=== PATIENT | male | born 1950 | race Caucasian/White ===

== ENCOUNTER → 2024-11-14 | Outpatient (CLI) | payer MEDICARE, BC, SELFPAY ==
[2024-11-14 15:55] LABS: Collection Type, Urine Clean Catch
[2024-11-14 17:40] LABS: Bacteria,Urine Rare; Bilirubin,Urine Negative (Negative); Blood,Urine Negative (Negative); Clarity,Urine Clear (Clear/Hazy); Color,Urine Yellow (Lt Yel-Yel); Glucose, Urine Negative (Negative); Ketones,Urine Negative (Negative); Leukocyte Esterase,Urine Negative (Negative); Nitrite,Urine Negative (Negative); Protein,Urine 1+ (Neg - Trace); RBC,Urine 2 /hpf (0-3); Squamous Epithelial Cell,Urine < 1 /hpf (0-5); Urobilinogen,Urine Negative mg/dL (0.0-1.0); WBC,Urine 5 /hpf (0-5)
== END | disposition home or self-care (01) ==
LOC: SLDO 15:17
PROVIDERS: PCP Family Medicine; Referring Provider Family Medicine; Visit Provider Family Medicine
DX: N30.00 Acute cystitis without hematuria (principal)
CPT/HCPCS: 81001; 87086

== ENCOUNTER → 2024-11-16 | Outpatient (CLI) | payer MEDICARE, BC, SELFPAY ==
[2024-11-16 10:59] LABS: Basophils # (Auto) 0.1 Thou/mm3 (0.0-0.2); Basophils % (Auto) 1 % (0-2.5); Eosinophils # (Auto) 0.4 Thou/mm3 (0.0-0.5); Eosinophils % (Auto) 4 % (0-10); Hematocrit 45.4 % (41.0-53.0); Hemoglobin 16.6 g/dL (13.5-16.0); Immature Granulocytes % (Auto) 0 % (0-0); Immature Granulocytes Auto 0.03 Thou/mm3 (0.00-0.00); Lymphocytes # (Auto) 2.7 Thou/mm3 (1.0-4.8); Lymphocytes % (Auto) 33 % (10-50); Mean Corpuscular HGB Conc 36.6 g/dl (31.0-37.0); Mean Corpuscular Hemoglobin 33.6 pg (25.0-35.0); Mean Corpuscular Volume 92 fL (80-100); Monocytes # (Auto) 0.6 Thou/mm3 (0.0-0.8); Monocytes % (Auto) 8 % (0-12); Neutrophils # (Auto) 4.5 Thou/mm3 (1.8-7.7); Neutrophils % (Auto) 54 % (37-80); Nucleated Red Blood Cell % 0 /100 WBC (0); Platelet Count 193 Thou/mm3 (140-440); Red Blood Count 4.94 Miln/mm3 (4.50-5.90); White Blood Count 8.2 Thou/mm3 (3.8-10.6)
[2024-11-16 11:34] LABS: Glucose Estimated Average 114 mg/dL (80-131); Hemoglobin A1C 5.6 % Hgb (4.8-6.0)
[2024-11-16 11:53] LABS: Alanine Aminotransferase 23 U/L (10-49); Albumin, Serum 4.3 gm/dL (3.4-4.8); Albumin/Globulin Ratio 1.6 (1.2-2.2); Alkaline Phosphatase 83 U/L (46-116); Anion Gap 8 (7-16); Aspartate Amino Transferase 24 U/L (0-34); BUN/Creatinine Ratio 12 Ratio (12-20); Bilirubin,Total 0.7 mg/dL (0.3-1.2); Blood Urea Nitrogen 17 mg/dL (9-23); Calcium 9.7 mg/dL (8.3-10.6); Calcium (Corrected) 9.7 mg/dL (8.5-10.1); Carbon Dioxide 27.9 mMol/L (20.0-31.0); Cardiac Risk Estimate 3.7 RATIO (4.0-6.7); Chloride 105 mMol/L (98-107); Cholesterol 178 mg/dL (132-200); Creatinine (Component) 1.4 mg/dL (0.6-1.3); Globulin 2.7 gm/dL (2.3-3.5); Glucose 126 mg/dL (74-106); HDL Cholesterol 48 mg/dL (40-60); LDL Cholesterol,Calculated 98 mg/dL (0-130); Osmolality,Calculated 284 (275-295); Potassium 4.4 mMol/L (3.4-5.1); Sodium 141 mMol/L (136-145); Thyroid Stimulating Hormone 1.14 uIU/mL (0.55-4.78); Triglycerides 158 mg/dL (30-150); eGFR 53 See Note
== END | disposition home or self-care (01) ==
LOC: COPL 10:25
PROVIDERS: PCP Family Medicine; Referring Provider Family Medicine; Visit Provider Family Medicine
DX: Z00.00 Encounter for general adult medical examination without abnormal findings (principal); M10.9 Gout, unspecified; R73.01 Impaired fasting glucose; I10 Essential (primary) hypertension; E78.2 Mixed hyperlipidemia
CPT/HCPCS: 36415; 80053; 80061; 83036; 84443; 85025

== ENCOUNTER → 2024-11-27 | Outpatient (CLI) | payer MEDICARE, BC, SELFPAY ==
[2024-11-27 09:47] LABS: Prostate Specific Antigen 0.95 ng/mL (0-4.00)
== END | disposition home or self-care (01) ==
LOC: COPL 08:41
PROVIDERS: PCP Family Medicine; Referring Provider Family Medicine; Visit Provider Family Medicine
DX: F52.21 Male erectile disorder (principal)
CPT/HCPCS: 36415; 84153

== ENCOUNTER → 2025-01-16 | Outpatient (CLI) | payer MEDICARE, BC, SELFPAY | END | disposition home or self-care (01) | LOC: COPL 14:08 | PROVIDERS: PCP Family Medicine; Referring Provider Family Medicine; Visit Provider Family Medicine | DX: F52.21 Male erectile disorder (principal) | CPT/HCPCS: 36415; 84403 ==

== ENCOUNTER → 2025-03-21 | Outpatient (BNVA) | payer MEDICARE, BC, SELFPAY | END | disposition home or self-care (01) | PROVIDERS: Visit Provider Urology | DX: N52.9 Male erectile dysfunction, unspecified (principal); N35.911 Unspecified urethral stricture, male, meatal; I10 Essential (primary) hypertension; Z86.73 Personal history of transient ischemic attack (TIA), and cerebral infarction without residual deficits | CPT/HCPCS: 99212; G0463 ==

== ENCOUNTER → 2025-04-19 | Outpatient (BNVA) | payer MEDICARE, BC, SELFPAY | END | disposition home or self-care (01) | PROVIDERS: Visit Provider Urology | DX: N40.1 Benign prostatic hyperplasia with lower urinary tract symptoms (principal); R39.12 Poor urinary stream; I10 Essential (primary) hypertension; Z86.73 Personal history of transient ischemic attack (TIA), and cerebral infarction without residual deficits | CPT/HCPCS: 51741; 51798 ==

== ENCOUNTER → 2025-05-15 | Outpatient (BNVA) | payer MEDICARE, BC, SELFPAY | END | disposition home or self-care (01) | PROVIDERS: Visit Provider Urology | DX: N35.911 Unspecified urethral stricture, male, meatal (principal); I10 Essential (primary) hypertension; Z86.73 Personal history of transient ischemic attack (TIA), and cerebral infarction without residual deficits | CPT/HCPCS: 53020; 81003; J3490; A9270 ==

== ENCOUNTER → 2025-06-11 | Outpatient (BNVA) | payer MEDICARE, BC, SELFPAY | END | disposition home or self-care (01) | PROVIDERS: Visit Provider Urology | DX: N40.1 Benign prostatic hyperplasia with lower urinary tract symptoms (principal); N13.8 Other obstructive and reflux uropathy; I10 Essential (primary) hypertension; Z86.73 Personal history of transient ischemic attack (TIA), and cerebral infarction without residual deficits | CPT/HCPCS: 76872 ==